=== PATIENT | female | born 1985 | race Two or more races ===

== ENCOUNTER 2019-09-20 10:57 | Outpatient (CLI) | payer BC ==
[~2019-09-20] VITALS: Ht 154.9 cm; Wt 97.0 kg
[2019-09-20 11:12] VITALS: BP 115/68
[2019-09-20] MEDS ORDERED: FOLI-17 PO (11:23)
[2019-09-20] MEDS ORDERED: CHOL400T55 PO (11:23)
[2019-09-20] MEDS ORDERED: PREN1TAB60 PO (11:23)
== END 2019-09-20 11:45 | disposition home or self-care (01) ==
LOC: EDBD → LDOP 10:57
PROVIDERS: ATTEND Obstetrics & Gynecology
DX: Z34.93 Encounter for supervision of normal pregnancy, unspecified, third trimester (principal); Z3A.37 37 weeks gestation of pregnancy
CPT/HCPCS: 59025; 99211; G0463

== ENCOUNTER 2019-09-24 14:23 | Outpatient (CLI) | payer BC ==
[~2019-09-24] VITALS: Ht 154.9 cm; Wt 97.0 kg
[~2019-09-24 14:23] MED LIST: CHOL400T55 PO; FOLI-17 PO; PREN1TAB60 PO
[2019-09-24 14:34] VITALS: BP 114/70
== END 2019-09-24 16:11 | disposition home or self-care (01) ==
LOC: LDOP 14:23 → EDBD 14:23 → LDOP 16:11
PROVIDERS: ATTEND Obstetrics & Gynecology
DX: O46.93 Antepartum hemorrhage, unspecified, third trimester (principal); Z3A.38 38 weeks gestation of pregnancy
CPT/HCPCS: 59025; 99211; G0463